=== PATIENT | female | born 1960 | race Two or more races ===

== ENCOUNTER 2019-05-11 14:17 | Observation (INO) | payer MEDICAID, OTHER, SELFPAY ==
[~2019-05-11] VITALS: Ht 165.1 cm; Wt 100.2 kg
[2019-05-12 12:18] VITALS: BP 112/72
== END 2019-05-12 16:55 | disposition home or self-care (01) ==
LOC: ED 15:52 → INTOOBSV 15:53 → 5SO 15:53 → ED 16:46 → DCLOUNGE 05-12 16:40
PROVIDERS: ADMIT Hospitalist; ATTEND Hospitalist
DX: I48.2 Chronic atrial fibrillation (principal); D72.829 Elevated white blood cell count, unspecified; D68.69 Other thrombophilia; E03.9 Hypothyroidism, unspecified; I10 Essential (primary) hypertension; R73.9 Hyperglycemia, unspecified; I25.2 Old myocardial infarction; M06.9 Rheumatoid arthritis, unspecified; Z88.8 Allergy status to other drugs, medicaments and biological substances; Z79.899 Other long term (current) drug therapy
CPT/HCPCS: 36415; 71045; 80048; 80053; 83036; 83735; 83880; 84443; 84484; 85025; 85379; 85520; 85610; 85730; 93005; 96365; 96366; 96375; 96376; 99291; G0378; J1644; J3480; J7030; J7512